=== PATIENT | male | born 1980 | race Caucasian/White ===

== ENCOUNTER 2020-10-19 18:33 | Emergency (ER) | payer OTHER ==
[~2020-10-19] VITALS: Ht 182.9 cm; Wt 81.6 kg
[2020-10-19 18:36] VITALS: BP 136/89
[2020-10-19] MEDS ORDERED: PSEU120T62 PO (21:03)
[2020-10-19] MEDS ORDERED: ALBU8.5H8 IH (21:03)
[2020-10-19] MEDS ORDERED: IBUP-2070 PO (21:03)
[2020-10-19] MEDS ORDERED: GUAI-899 PO (21:03)
[2020-10-19] MEDS ORDERED: AZIT250T9 PO (21:03)
[2020-10-19 21:54] VITALS: BP 129/74
[2020-10-21] MEDS ORDERED: FENTANYL CITRATE PF 50 MCG/1 ML 2ML VIAL ONE (08:35)
== END 2020-10-19 21:45 | disposition home or self-care (01) ==
LOC: EDH 18:33
DX: U07.1 COVID-19 (principal); Z90.49 Acquired absence of other specified parts of digestive tract
CPT/HCPCS: 71045; 87635; 87804 ×2; 99284; C9803

== ENCOUNTER → 2020-12-23 | Outpatient (CLI) | payer OTHER ==
[~2020-12-23] MED LIST: ALBU8.5H8 IH; AZIT250T9 PO; GUAI-899 PO; IBUP-2070 PO; PSEU120T62 PO
== END | disposition home or self-care (01) ==
LOC: OIH 08:46
PROVIDERS: ATTEND Family Medicine
DX: Z13.6 Encounter for screening for cardiovascular disorders (principal); I25.10 Atherosclerotic heart disease of native coronary artery without angina pectoris
CPT/HCPCS: 75571